=== PATIENT | male | born 1945 | race Two or more races ===

== ENCOUNTER 2018-02-14 11:54 | Outpatient (CLI) | payer OTHER ==
[~2018-02-14] VITALS: Ht 167.6 cm; Wt 63.5 kg
== END 2018-02-14 17:00 | disposition home or self-care (01) ==
LOC: OFIC 805 11:54
DX: H60.8X2 Other otitis externa, left ear (principal); K21.0 Gastro-esophageal reflux disease with esophagitis; M54.2 Cervicalgia

== ENCOUNTER 2018-04-06 08:36 | Outpatient (CLI) | payer OTHER ==
[~2018-04-06] VITALS: Ht 152.4 cm; Wt 63.5 kg
== END 2018-04-06 09:00 | disposition home or self-care (01) ==
LOC: OFIC 805 08:36
DX: K21.9 Gastro-esophageal reflux disease without esophagitis (principal); M54.2 Cervicalgia; D14.1 Benign neoplasm of larynx

== ENCOUNTER 2018-04-14 12:05 | Outpatient (CLI) | payer OTHER ==
[~2018-04-14] VITALS: Ht 152.4 cm; Wt 63.5 kg
== END 2018-04-14 12:20 | disposition home or self-care (01) ==
LOC: OFIC 805 12:05
DX: D14.1 Benign neoplasm of larynx (principal); K31.89 Other diseases of stomach and duodenum; M54.2 Cervicalgia

== ENCOUNTER 2018-05-29 05:00 | Day surgery (SDC) | payer OTHER ==
[~2018-05-29 05:00] MED LIST: LOSARTAN POTASS25 MG PO; NORVASC10 MG PO; SYNTHROID75 MCG PO; TRAMADOL HCL50 MG PO
== END 2018-05-29 10:10 | disposition home or self-care (01) ==
LOC: CIR.AMB 05:00
DX: J38.3 Other diseases of vocal cords (principal)

== ENCOUNTER 2018-06-05 13:00 | Outpatient (CLI) | payer OTHER ==
[~2018-06-05] VITALS: Ht 152.4 cm; Wt 63.5 kg
== END 2018-06-05 13:15 | disposition home or self-care (01) ==
LOC: OFIC 805 13:00
DX: C32.0 Malignant neoplasm of glottis (principal)

== ENCOUNTER 2020-11-27 16:59 | Emergency (ER) | payer OTHER ==
[~2020-11-27] VITALS: Ht 167.6 cm; Wt 64.4 kg
[2020-11-27] MEDS ORDERED: CHILDREN'S ASPI81 MG (17:08)
[2020-11-27] MEDS ORDERED: FAMOTIDINE40 MG (17:08)
[2020-11-27] MEDS ORDERED: AMLODIPINE-OLM1 EAC2 (17:08)
[2020-11-27] MEDS ORDERED: FENOFIBRATE150 MG (17:09)
[2020-11-27] MEDS ORDERED: CIPRO500 MG PO (19:11)
[2020-11-27] MEDS ORDERED: DICY20TA PO (19:11)
[2020-11-27] MEDS ORDERED: FLAGYL500MG PO (19:11)
[2020-11-27] MEDS ORDERED: PROTONIX40 MG PO (19:11)
== END 2020-11-27 20:25 | disposition home or self-care (01) ==
LOC: ER 16:59
DX: K57.92 Diverticulitis of intestine, part unspecified, without perforation or abscess without bleeding (principal); K59.09 Other constipation; E87.6 Hypokalemia; R50.9 Fever, unspecified; Z03.818 Encounter for observation for suspected exposure to other biological agents ruled out

== ENCOUNTER 2021-01-15 09:45 | Inpatient (IN) | payer OTHER ==
[~2021-01-15] VITALS: Ht 167.6 cm; Wt 61.7 kg
[~2021-01-15 09:45] MED LIST changes: +AMLODIPINE-OLM1 EAC2; +CHILDREN'S ASPI81 MG; +CIPRO500 MG PO; +DICY20TA PO; +FAMOTIDINE40 MG; +FENOFIBRATE150 MG; +FLAGYL500MG PO; +PROTONIX40 MG PO
[2021-01-15] MEDS ORDERED: HYDROCHLOROTHIA25 MG PO (11:09)
[2021-01-15] MEDS ORDERED: ACID CONTROLLER20 MG PO (11:10)
[2021-01-15] MEDS ORDERED: CENTRUM PO (11:10)
[2021-01-15] MEDS ORDERED: FENOFIBRAT PO (11:10)
[2021-01-15] MEDS ORDERED: VITAMIN B125000 MCG PO (11:11)
[2021-01-22] MEDS ORDERED: DICLOFENAC POTA50 MG (08:00)
[2021-01-22] MEDS ORDERED: DULOXETINE HCL30 MG (08:01)
[2021-01-22] MEDS ORDERED: INTESTINEX680 M1 (08:01)
[2021-01-22] MEDS ORDERED: AMLODIPINE BESYL5 MG (08:01)
[2021-01-22] MEDS ORDERED: PROTECT PLUS S1 EACH (08:01)
[2021-01-22] MEDS ORDERED: SIMVASTATIN20 MG (08:01)
[2021-01-22] MEDS ORDERED: CENTRUM ADULTS1 EACH (08:02)
[2021-01-24] MEDS ORDERED: HYOSCYAMINE0.125 M1 SL (12:42)
[2021-01-24] MEDS ORDERED: ULTRACET PO (12:42)
[2021-01-24] MEDS ORDERED: PROTONIX40 MG PO (12:43)
[2021-01-24] MEDS ORDERED: INTESTINEX680 M1 PO (12:44)
== END 2021-01-24 13:31 | disposition home or self-care (01) | DRG 331 ==
LOC: SURH 01-21 09:45 → O/R 01-21 11:03 → SURH 01-21 21:30 → SURG 01-22
PROVIDERS: ADMIT Surgery; ATTEND Surgery
PROC: 0DTP4ZZ Resection of Rectum, Percutaneous Endoscopic Approach (ICD-10-PCS; 2021-01-21)
PROC: 0DBN4ZZ Excision of Sigmoid Colon, Percutaneous Endoscopic Approach (ICD-10-PCS; principal; 2021-01-21 21:30)
DX: K57.32 Diverticulitis of large intestine without perforation or abscess without bleeding (principal); E03.8 Other specified hypothyroidism; I13.10 Hypertensive heart and chronic kidney disease without heart failure, with stage 1 through stage 4 chronic kidney disease, or unspecified chronic kidney disease; N18.31 Chronic kidney disease, stage 3a; Z20.822 Contact with and (suspected) exposure to COVID-19; K59.00 Constipation, unspecified; D64.9 Anemia, unspecified

== ENCOUNTER 2024-06-03 19:31 | Inpatient (IN) | payer OTHER ==
[~2024-06-03] VITALS: Ht 167.6 cm; Wt 63.5 kg
[~2024-06-03 19:31] MED LIST changes: +ACID CONTROLLER20 MG PO; +AMLODIPINE BESYL5 MG; +CENTRUM ADULTS1 EACH; +CENTRUM PO; +DICLOFENAC POTA50 MG; +DULOXETINE HCL30 MG; +FENOFIBRAT PO; +HYDROCHLOROTHIA25 MG PO; +HYOSCYAMINE0.125 M1 SL; +INTESTINEX680 M1; +INTESTINEX680 M1 PO; +PROTECT PLUS S1 EACH; +SIMVASTATIN20 MG; +ULTRACET PO; +VITAMIN B125000 MCG PO
[2024-06-03] MEDS ORDERED: 0.9 % SODIUM CHLORIDE 1,000 ML IV STA (21:36)
[2024-06-03] MEDS ORDERED: KETOROLAC TROMETHAMINE 30 MG VIAL IV ONE (21:45)
[2024-06-03] MEDS ORDERED: KETOROLAC TROMETHAMINE 30 MG VIAL ONE (21:52)
[2024-06-03 22:23] LABS: HEMATOCRIT 42.7 % (39.0-48.0); HEMOGLOBIN 14.7 g/dL (13-16.00); MEAN CORPUSCULAR HGB CONC 34.5 g/dl (32.0-36.0); PLATELET COUNT 284 K/uL (150-450); RED BLOOD COUNT 4.74 M/uL (4.00-6.00); RED CELL DISTRIBUTION WIDTH 13.5 % (11.5-14.5)
[2024-06-03 22:29] LABS: PH,URINE 6.5 (5.0-8.0); URINE APPEARANCE Clear; URINE BILIRRUBIN Negative (NEGATIVE); URINE BLOOD Negative; URINE COLOR Yellow; URINE GLUCOSE Negative (NEGATIVE); URINE KETONE Negative (NEGATIVE); URINE LEUKOCYTE Negative; URINE NITRATE Negative; URINE PROTEIN Negative (NEGATIVE); URINE UROBILINOGEN 0.2 E.U./dl
[2024-06-03 22:35] LABS: URINE BACTERIA 2.4 uL (0.0-1933); URINE EPITHELIAL CELLS 0.1 uL (0.0-38.8); URINE RBC 1.7 uL (0.0-20.8); URINE WBC 0.4 uL (0.0-23.2)
[2024-06-03 22:47] LABS: PARTIAL THROMBOPLASTIN TIME 25.1 SECONDS (22.0-34.0); PROTHROMBIN TIME 10.9 SECONDS (9.0-11.5)
[2024-06-03 22:52] LABS: ALBUMIN 4.3 gm/dL (3.4-5.0); BILIRUBIN TOTAL 0.49 mg/dL (0.3-1.2); CALCIUM 9.8 mg/dL (8.5-10.1); CREATININE SERUM 1.35 mg/dL (0.70-1.30); GFR 50.85; GLOBULINA 3.3 G/DL (2.4-3.5); POTASSIUM 3.04 mEq/L (3.5-5.1); TOTAL PROTEIN 7.6 gm/dL (6.4-8.2)
[2024-06-04] MEDS ORDERED: PIPERACILLIN/TAZOBACTAM SODIUM 3.375 GM in 0.9 % SODIUM CHLORIDE 100 ML IV SCH (03:55)
[2024-06-04] MEDS ORDERED: KETOROLAC TROMETHAMINE 30 MG VIAL IV STA (03:56)
[2024-06-04] MEDS ORDERED: ORPHENADRINE CITRATE 30 MG/ML AMPUL IV STA (03:56)
[2024-06-04] MEDS ORDERED: ORPHENADRINE CITRATE 30 MG/ML AMPUL ONE (04:09)
[2024-06-04] MEDS ORDERED: KETOROLAC TROMETHAMINE 30 MG VIAL ONE (04:09)
[2024-06-04] MEDS ORDERED: PIPERACILLIN/TAZOBACTAM SODIUM 3.375 GM VIAL IV ONE ×2 (04:10→16:22)
[2024-06-04] MEDS ORDERED: POTASSIUM CHLORIDE IN WATER 40 MEQ/100 ML PIGGYBAG IV ONE ×2 (08:00→08:37)
[2024-06-04] MEDS ORDERED: MEPERIDINE HCL/PF 25 MG/ML VIAL IV PRN (08:00)
[2024-06-04] MEDS ORDERED: ONDANSETRON HCL 2 MG/ML VIAL IV PRN (08:00)
[2024-06-04] MEDS ORDERED: ACETAMINOPHEN 325 MG TABLET PO SCH (14:03)
[2024-06-04] MEDS ORDERED: GABAPENTIN 300 MG CAPSULE PO SCH (14:04)
[2024-06-04] MEDS ORDERED: MORPHINE SULFATE 2 MG/ML SYRINGE IV PRN (14:15)
[2024-06-04] MEDS ORDERED: MORPHINE SULFATE 4 MG/ML VIAL IV ONE (15:50)
[2024-06-04 18:50] VITALS: BP 143/77
[2024-06-05 00:37] VITALS: BP 149/75; O2SAT 99
[2024-06-05 09:40] VITALS: BP 103/62; O2SAT 99
== END 2024-06-05 15:31 | disposition home or self-care (01) | DRG 399 ==
LOC: ER 19:34 → SEC-K 06-04 07:57 → SURH 06-04 07:57 → O/R 06-04 14:35 → SURH 06-04 15:55
PROVIDERS: Emergency Medicine; Student in an Organized Health Care Education/Training Program; ADMIT Internal Medicine; ATTEND Internal Medicine
PROC: 0DTJ4ZZ Resection of Appendix, Percutaneous Endoscopic Approach (ICD-10-PCS; principal; 2024-06-04 15:00)
DX: K35.890 Other acute appendicitis without perforation or gangrene (principal)